=== PATIENT | male | born 1960 | race Caucasian/White ===

== ENCOUNTER 2018-05-26 14:32 | Outpatient (CLI) | payer BC ==
--- NOTE | 2018-05-26 15:59 | RAD ---
LUMBAR SPINE THREE VIEWS: 05/26/2018 HISTORY: Back pain for two months. Inflammatory spondylolisthesis. COMPARISON: None. FINDINGS: There is atherosclerotic calcification of the abdominal aorta. There is mild disk space narrowing at L5-S1. There is mild lower lumbar spine facet hypertrophy. No anterolisthesis or retrolisthesis. No acute osseous abnormality. IMPRESSION: No acute osseous abnormality. POS: [facility]
== END 2018-05-26 14:33 | disposition home or self-care (01) ==
LOC: NAV RAD 14:32
PROVIDERS: ATTEND Internal Medicine Rheumatology
DX: M46.87 Other specified inflammatory spondylopathies, lumbosacral region (principal)
CPT/HCPCS: 72100